=== PATIENT | female | born 1990 | race Two or more races ===

== ENCOUNTER 2023-09-24 12:08 | Emergency (ER) | payer OTHER ==
[~2023-09-24] VITALS: Ht 157.5 cm; Wt 68.0 kg
[2023-09-24] MEDS ORDERED: ESCITALOPRAM OX20 MG PO (12:15)
[2023-09-24 13:01] LABS: HEMATOCRIT 38.2 % (36.0-45.00); MEAN CELL VOLUME 90.5 fL (80.00-100.00); MEAN CORPUSCULAR HEMOGLOBIN 30.7 pg (27.00-32.0); MEAN CORPUSCULAR HGB CONC 33.9 g/dl (32.0-36.0); PLATELET COUNT 180 K/uL (150-450); RED BLOOD COUNT 4.23 M/uL (4.00-6.00); RED CELL DISTRIBUTION WIDTH 13.4 % (11.5-14.5)
[2023-09-24 13:43] LABS: URINE APPEARANCE Clear; URINE BILIRRUBIN Negative (NEGATIVE); URINE BLOOD Moderate; URINE COLOR Yellow; URINE GLUCOSE Negative (NEGATIVE); URINE LEUKOCYTE Small; URINE NITRATE Negative; URINE PROTEIN Negative (NEGATIVE); URINE UROBILINOGEN 0.2 E.U./dl
[2023-09-24 13:48] LABS: URINE BACTERIA 1964.1 uL (0.0-1933); URINE EPITHELIAL CELLS 41.4 uL (0.0-38.8); URINE RBC 160.2 uL (0.0-20.8); URINE WBC 64.4 uL (0.0-23.2)
[2023-09-24 15:09] LABS: ALBUMIN 4.1 gm/dL (3.4-5.0); BILIRUBIN TOTAL 0.27 mg/dL (0.3-1.2); CREATININE SERUM 0.78 mg/dL (0.55-1.02); GFR 84.04; GLOBULINA 3.7 G/DL (2.4-3.5); POTASSIUM 3.6 mEq/L (3.5-5.1); TOTAL PROTEIN 7.8 gm/dL (6.4-8.2)
[2023-09-24] MEDS ORDERED: NITROFURANTOIN100 MG PO (15:23)
== END 2023-09-24 15:37 | disposition home or self-care (01) ==
LOC: ER 12:09
PROVIDERS: General Practice
DX: O20.9 Hemorrhage in early pregnancy, unspecified (principal)

== ENCOUNTER 2023-10-26 09:47 | Day surgery (SDC) | payer OTHER ==
[2023-10-25 12:19] LABS: HEMATOCRIT 39.3 % (36.0-45.00); HEMOGLOBIN 13.3 g/dL (12.0-15.00); MEAN CELL VOLUME 90.2 fL (80.00-100.00); MEAN CORPUSCULAR HEMOGLOBIN 30.6 pg (27.00-32.0); MEAN CORPUSCULAR HGB CONC 33.9 g/dl (32.0-36.0); PLATELET COUNT 157 K/uL (150-450); RED BLOOD COUNT 4.35 M/uL (4.00-6.00); RED CELL DISTRIBUTION WIDTH 13.8 % (11.5-14.5)
[2023-10-25 12:41] LABS: INR 1.04; PARTIAL THROMBOPLASTIN TIME 28.1 SECONDS (22.0-34.0); PROTHROMBIN TIME 10.9 SECONDS (9.0-11.5)
[2023-10-25 12:48] LABS: ALBUMIN 3.7 gm/dL (3.4-5.0); BILIRUBIN TOTAL 0.27 mg/dL (0.3-1.2); CALCIUM 8.9 mg/dL (8.5-10.1); CREATININE SERUM 0.64 mg/dL (0.55-1.02); GFR 105.6; GLOBULINA 3.4 G/DL (2.4-3.5); POTASSIUM 4.34 mEq/L (3.5-5.1); TOTAL PROTEIN 7.1 gm/dL (6.4-8.2)
[2023-10-25 14:11] LABS: RH NEGATIVE
[~2023-10-26 09:47] MED LIST: ESCITALOPRAM OX20 MG PO; NITROFURANTOIN100 MG PO
[2023-10-26] MEDS ORDERED: CLINDAMYCIN PHOSPHATE 150 MG/ML (900mg) IV SCH ×2 (11:30→16:15)
[2023-10-26] MEDS ORDERED: CLINDAMYCIN PHOSPHATE 150 MG/ML (900mg) ONE (14:53)
[2023-10-26] MEDS ORDERED: POVIDONE-IODINE 118 ML BOTT TOP ONE ×2 (15:13→16:15)
[2023-10-26] MEDS ORDERED: CHLORHEXIDINE GLUCONATE 120 ML BOTTLE TOP ONE ×2 (15:13→16:15)
[2023-10-26] MEDS ORDERED: PROMETHAZINE HCL 50 MG/ML AMPUL IM ONE (16:45)
[2023-10-26] MEDS ORDERED: MORPHINE SULFATE 4 MG/ML VIAL IV PRN (16:45)
[2023-10-26] MEDS ORDERED: FF) RHO(D) IMMUNE GLOBULIN (POM) IM STA (17:12)
== END 2023-10-26 19:45 | disposition home or self-care (01) ==
LOC: CIR.AMB 09:47
PROVIDERS: ATTEND Obstetrics & Gynecology
DX: O02.1 Missed abortion (principal); O72.2 Delayed and secondary postpartum hemorrhage; Z88.0 Allergy status to penicillin; Z88.6 Allergy status to analgesic agent

== ENCOUNTER 2025-01-27 07:45 | Inpatient (IN) | payer OTHER ==
[~2025-01-27] VITALS: Ht 157.5 cm; Wt 3.2 kg
[2025-01-30] MEDS ORDERED: PRENATE ELITE1 EAC2 PO (08:21)
[2025-01-30 08:40] LABS: BASO % 0.4 % (0.1-1.2); EOS # 0.16 (0.04-0.54); EOS % 2.2 % (0.7-7.0); LYMPH # 1.32 (1.18-3.74); LYMPH % 17.8 % (19.3-53.1); MEAN PLATELET VOLUME 12.30 fl (9.4-12.4); MONO # 0.81 (0.24-0.82); MONO % 10.9 % (4.7-12.5); NEUT # 5.06 (1.56-6.13); NEUT % 68.4 % (34.0-71.1); RED CELL DISTRIBUTION WIDTH 13.5 % (11.6-14.4)
[2025-01-30 09:01] LABS: INR 0.96
[2025-01-30 09:28] LABS: ALT/SGPT 17.0 U/L (12-78); AST/SGOT 16.0 U/L (15-37); BILIRUBIN TOTAL 0.36 mg/dL (0.3-1.2); BUN CREA RATIO 15.0 (7.0-25.0); CREATININE SERUM 0.68 mg/dL (0.55-1.02); GFR 97.9; GLOBULINA 3.4 G/DL (2.4-3.5); GLUCOSE FASTING 77.0 mg/dL (65-100); OSMOLALITY SERUM 281.0 MOSM/KG (275-295)
[2025-02-04 07:58] VITALS: BP 119/76
[2025-02-04] MEDS ORDERED: OXYTOCIN 10 UNITS/ML VIAL IV ONE (09:00)
[2025-02-04] MEDS ORDERED: ERYTHROMYCIN BASE OPHT 1GM EACH TUBE OP ONE (09:00)
[2025-02-04] MEDS ORDERED: CLINDAMYCIN PHOSPHATE 150 MG/ML (900mg) IV ONE (09:45)
[2025-02-04] MEDS ORDERED: GENTAMICIN SULFATE 40 MG/ML VIAL IV ONE (09:45)
[2025-02-04] MEDS ORDERED: CITRIC ACID/SODIUM CITRATE 30 ML BLIST.PACK PO ONE (09:45)
[2025-02-04] MEDS ORDERED: OXYTOCIN 1,000 ML IV SCH (10:45)
[2025-02-04] MEDS ORDERED: MORPHINE SULFATE 4 MG/ML CARTRIDGE IV PRN (10:45)
[2025-02-04 12:56] VITALS: BP 118/63
[2025-02-04 16:07] VITALS: BP 110/69
[2025-02-05 02:23] VITALS: BP 115/71
[2025-02-05] MEDS ORDERED: GABAPENTIN 300 MG CAPSULE PO SCH (09:00)
[2025-02-05] MEDS ORDERED: SIMETHICONE 125 MG CAPSULE PO SCH (09:00)
[2025-02-05 10:31] LABS: BASO % 0.3 % (0.1-1.2); EOS # 0.02 (0.04-0.54); EOS % 0.2 % (0.7-7.0); LYMPH # 1.34 (1.18-3.74); LYMPH % 13.6 % (19.3-53.1); MEAN PLATELET VOLUME 12.90 fl (9.4-12.4); MONO # 0.80 (0.24-0.82); MONO % 8.1 % (4.7-12.5); NEUT # 7.61 (1.56-6.13); NEUT % 77.6 % (34.0-71.1); RED CELL DISTRIBUTION WIDTH 13.2 % (11.6-14.4)
[2025-02-05] MEDS ORDERED: ACETAMINOPHEN 500 MG GEL..CAP PO SCH (12:00)
[2025-02-05 16:45] VITALS: BP 109/70
[2025-02-06 02:54] VITALS: BP 116/71
[2025-02-06] MEDS ORDERED: KETOROLAC TROMETHAMINE 10 MG TABLET PO SCH (08:00)
[2025-02-06] MEDS ORDERED: OxyCODONE HCL 5 MG TABLET (ROXICODONE) PO PRN (08:00)
[2025-02-06 08:59] VITALS: BP 103/66
[2025-02-06 16:21] VITALS: BP 123/76
[2025-02-07] VITALS: BP 120/79
[2025-02-07 08:18] VITALS: BP 112/74
[2025-02-07] MEDS ORDERED: KETO10TA2 PO (09:53)
[2025-02-07] MEDS ORDERED: OXYCODONE HCL5 MG PO (09:53)
== END 2025-02-07 12:35 | disposition home or self-care (01) | DRG 785 ==
LOC: OB/GYN 02-04 07:45 → O/R 02-04 08:28 → OB/GYN 02-04 10:30
PROVIDERS: Obstetrics & Gynecology Gynecology; ADMIT Obstetrics & Gynecology Maternal & Fetal Medicine; ATTEND Obstetrics & Gynecology Maternal & Fetal Medicine
PROC: 0UB70ZZ Excision of Bilateral Fallopian Tubes, Open Approach (ICD-10-PCS; 2025-02-04)
PROC: 0DNW0ZZ Release Peritoneum, Open Approach (ICD-10-PCS; 2025-02-04)
PROC: 4A1HXCZ Monitoring of Products of Conception, Cardiac Rate, External Approach (ICD-10-PCS; 2025-02-04)
PROC: 10D00Z1 Extraction of Products of Conception, Low, Open Approach (ICD-10-PCS; principal; 2025-02-04 10:30)
DX: O34.211 Maternal care for low transverse scar from previous cesarean delivery (principal); O99.892 Other specified diseases and conditions complicating childbirth; N73.6 Female pelvic peritoneal adhesions (postinfective); Z30.2 Encounter for sterilization; Z3A.38 38 weeks gestation of pregnancy; Z37.0 Single live birth